=== PATIENT | male | born 1960 | race Caucasian/White ===

== ENCOUNTER → 2017-01-08 | Day surgery (SDC) | payer OTHER, MEDICARE ==
[~2017-01-08] VITALS: Ht 182.9 cm; Wt 78.0 kg
[~2017-01-08] MED LIST: ABILIFY15 M1 PO; ATIVAN1 M1 PO; OMEPRAZOLE20 M2 PO
--- NOTE | 2017-01-08 11:16 | Operative Report ---
Operative/Inv Procedure Report Surgery Date: 01/08/17 Name of Procedure: Ventral hernia repair with mesh Pre-Operative Diagnosis: Umbilical hernia incarcerated Post-Operative Diagnosis: Incarcerated ventral hernia Estimated Blood Loss: scant Surgeon/Care Consultant: ASTON WOODARD,KEN Singh/Jasmin WESTON Anesthesia: local monitored anesthesi Implants: 4.5 cm ventral X mesh Operative/Procedure Note Note: After consent he is brought to the operating room and laid supine. Sedation was obtained and his abdomen was prepped and draped. The umbilicus was circumferentially infiltrated with local anesthesia. A curvilinear incision was made inferiorly. The umbilical stock was circumferentially dissected and then transected with cautery. The defect was exposed. There was incarcerated fat. It was dissected free down to the stock which was incised with cautery. As able to reduce the contents. The resultant defect was just over 2.5 cm. I elected repair with preperitoneal mesh. Differential planes were developed in the preperitoneum. The mesh was then placed and opened within the cavity. The fascia was closed over the mesh with interrupted 0 Maxon sutures. The anterior portion of mesh was incorporated into the closure. The umbilical stock was re- created 3-0 Vicryl and the incision closed in layers of absorbable sutures. Steri-Strips and sterile dressing applied. Sponge and needle counts are correct CC: QUE WOODARD,EDUARDO
== END ==
LOC: STS 05:22
DX: K42.0 Umbilical hernia with obstruction, without gangrene (principal)
CPT/HCPCS: C1781; J0131; J0690; J2250; J2405